=== PATIENT | female | born 1980 | race Caucasian/White ===

== ENCOUNTER 2017-01-17 07:28 | Inpatient (IN) | payer BC ==
[~2017-01-17 07:28] MED LIST: Lactated Ringers 1,000 ML IV SCH; Lidocaine 1%/Sod Bicarbonate in NS 8.4% 1 ML Syringe PRN; Sodium Chloride 0.9% 10 ML Syringe FLUSH PRN
[2017-01-17] MEDS ORDERED: Sodium Chloride 0.9% 50 ML SDV ONE (07:40)
[2017-01-17] MEDS ORDERED: Lidocaine 1% with EPINEPHrine 1:100,000 20 ML MDV ONE (07:40)
--- NOTE | 2017-01-17 08:18 | PCM.PREANE ---
Preanesthetic Assessment - Procedure Proposed Procedure: TVH - Anesthesia/Transfusion/Family Hx Anesthesia History: Prior Anesthesia Without Reaction Family History of Anesthesia Reaction: No Transfusion History: Prior Transfusion Without Reaction Intubation History: Unknown - Review of Systems General: No Symptoms Pulmonary: No Symptoms Cardiovascular: No Symptoms Gastrointestinal: Other (GERD) Neurological: No Symptoms Other: Reports: None, Thyroid Problems (hypothyroidism ), Depression (not medicated ) - Physical Assessment NPO Status Date: 01/16/17 NPO Status Time: 21:00 Pulse: 80 O2 Sat by Pulse Oximetry: 96 Respiratory Rate: 16 Blood Pressure: 116/86 Temperature: 37.0 C Height: 1.75 m Weight: 109.769 kg ASA Class: 2 Mental Status: Alert & Oriented x3 Airway Class: Mallampati = 2 Dentition: Reports: Normal Dentition Thyro-Mental Finger Breadths: 3 Mouth Opening Finger Breadths: 3 ROM/Head Extension: Full Lungs: Clear to Auscultation, Normal Respiratory Effort Cardiovascular: Regular Rate, Regular Rhythm - Allergies Allergies/Adverse Reactions: Allergies Allergy/AdvReac Type Severity Reaction Status Date / Time No Known Allergies Allergy Verified 01/16/17 12:43 - Blood Blood Available: No Product(s) Available: None - Anesthesia Plan Pre-Op Medication Ordered: None - Acknowledgements Anesthesia Type Planned: General Anesthesia Pt an Appropriate Candidate for the Planned Anesthesia: Yes Alternatives and Risks of Anesthesia Discussed w Pt/Guardian: Yes Pt/Guardian Understands and Agrees with Anesthesia Plan: Yes PreAnesthesia Questionnaire HEENT History: Reports: None Cardiovascular History: Reports: None Respiratory History: Reports: None Gastrointestinal History: Reports: None Genitourinary History: Reports: Other (See Below) Other Genitourinary History: menorrhagia PLUG GROWER History: Reports: None Musculoskeletal History: Reports: Other (See Below) Other Musculoskeletal History: radial head/neck fracture with hardware Neurological History: Reports: None Psychiatric History: Reports: Depression Endocrine/Metabolic History: Reports: None Hematologic History: Reports: None Immunologic History: Reports: None Oncologic (Cancer) History: Reports: None Dermatologic History: Reports: None - Past Surgical History HEENT Surgical History: Reports: None Cardiovascular Surgical History: Reports: None Respiratory Surgical History: Reports: None GI Surgical History: Reports: Appendectomy Female Surgical History: Reports: None Male Surgical History: Reports: None Endocrine Surgical History: Reports: None Neurological Surgical History: Reports: None Oncologic Surgical History: Reports: None Dermatological Surgical History: Reports: None - SUBSTANCE USE Smoking Status *Q: Former Smoker Recreational Drug Use History: No - HOME MEDS Home Medications: Home Meds Desogestrel-Ethinyl Estradiol [Apri 28 Day Tablet] 1 tab PO DAILY 01/16/17 [ History] Esomeprazole Magnesium [Nexium] 20 mg PO DAILY 01/16/17 [History] Levothyroxine [Levothyroxine] 75 mcg PO DAILY 01/16/17 [History] Vitamin B Complex [B Complex] 1 tab PO DAILY 01/16/17 [History] buPROPion [Wellbutrin XL] 150 mg PO BID 01/16/17 [History] - CURRENT (IN HOUSE) MEDS Current Meds: Current Medications Lactated Ringer's (Ringers, Lactated) 1,000 mls @ 125 mls/hr IV ASDIRECTED MICHAEL Stop: 01/17/17 23:00 Lidocaine/Sodium Bicarbonate (Buffered Lidocaine 1% In Ns 8.4%) 0.25 ml .XX ONETIME PRN PRN Reason: Prior to IV Start Stop: 01/17/17 18:00 Sodium Chloride (Saline Flush) 10 ml FLUSH ASDIRECTED PRN PRN Reason: Keep Vein Open Stop: 01/17/17 18:00 Discontinued Medications Lidocaine/Epinephrine (Xylocaine 1% With Epinephrine 1:100,000) Confirm Administered Dose 20 ml .ROUTE .STK-MED ONE Stop: 01/17/17 07:41 Sodium Chloride (Normal Saline) Confirm Administered Dose 50 ml .ROUTE .STK-MED ONE Stop: 01/17/17 07:41
[2017-01-17] MEDS ORDERED: Midazolam 1 MG/ML 2 ML SDV ONE (08:40)
[2017-01-17] MEDS ORDERED: Propofol 200 MG/20 ML SDV ONE ×2 (08:40→13:31)
[2017-01-17] MEDS ORDERED: fentaNYL 250 MCG/5 ML SDV ONE (08:40)
[2017-01-17] MEDS ORDERED: Dexamethasone 4 MG/ML 5 ML MDV ONE (08:43)
[2017-01-17] MEDS ORDERED: Rocuronium 50 MG/5 ML Vial ONE (08:43)
[2017-01-17] MEDS ORDERED: Ondansetron 4 MG/2 ML SDV ONE (08:43)
[2017-01-17] MEDS ORDERED: Lidocaine 1% 4 ML ONE (08:43)
[2017-01-17] MEDS ORDERED: ceFAZolin 1 GM Vial ONE (09:20)
[2017-01-17] MEDS ORDERED: Ketorolac 30 MG/ML SDV ONE (09:22)
[2017-01-17] MEDS ORDERED: Ketamine 500 mg/10 ML MDV ONE (09:22)
[2017-01-17] MEDS ORDERED: Neostigmine Methylsulfate 1 MG/ML 5 ML Syringe ONE (09:38)
[2017-01-17] MEDS ORDERED: fentaNYL 100 MCG/2 ML SDV ONE ×2 (10:22→13:40)
[2017-01-17] MEDS ORDERED: HYDROmorphone 1 MG/ML Syringe ONE (10:39)
[2017-01-17] MEDS ORDERED: HYDROmorphone 0.5 MG/0.5 ML Syringe IVPUSH PRN (11:34)
[2017-01-17] MEDS ORDERED: Ondansetron 4 MG/2 ML SDV IVPUSH PRN (11:34)
[2017-01-17] MEDS ORDERED: fentaNYL 100 MCG/2 ML SDV IVPUSH PRN (11:34)
[2017-01-17] MEDS ORDERED: Meperidine PF 50 MG/ML Syringe IVPUSH PRN (11:34)
[2017-01-17] MEDS ORDERED: diphenhydrAMINE 50 MG/ML SDV IVPUSH PRN (11:34)
--- NOTE | 2017-01-17 11:34 | PCM.POSTAN ---
POST ANESTHESIA ASSESSMENT - MENTAL STATUS Mental Status: Alert, Oriented - VITAL SIGNS Pulse Rate: 90 SaO2: 100 Resp Rate: 14 Blood Pressure: 95/41 Temperature: 36.4 C - RESPIRATORY Respiratory Status: Respiratory Rate WNL, Airway Patent, O2 Saturation Stable, Supplemental Oxygen - CARDIOVASCULAR CV Status: Pulse Rate WNL, Blood Pressure Stable - GASTROINTESTINAL GI Status: No Symptoms - PAIN Pain Score: 0 - POST OP HYDRATION Hydration Status: Adequate & Stable
--- NOTE | 2017-01-17 11:42 | PCM.OPNOTE ---
- General Post-Op/Procedure Note Date of Surgery/Procedure: 01/17/17 Operative Procedure(s): Total vaginal hysterectomy Findings: Normal uterus and ovaries. Pre Op Diagnosis: menorrhagia, pelvic pain Post-Op Diagnosis: Same Anesthesia Technique: General ET Tube Primary Surgeon: Monica Bernard Beer Merchant: Eva Garrett Reason Beer Merchant Was Necessary: Standard for vaginal hysterectomy, need for retraction, assistance and sufficient exposure in small spaces. Pathology: uterus Fluid Replacement, Intraop: 2,200 Output, Urine Amount: 300 EBL in mLs: 600 Complications: None Condition: Good Free Text/Narrative:: Procedure: After obtaining appropriate consent she was taken the the operating room where general anesthetic was administered. She was prepped and draped in the usual sterile fashion in high lithotomy using carmelo stirrups. A weighted speculum was placed in the posterior vagina and a maycol utilized anteriorly to visualize the cervix which was grasped with a double toothed tenaculum and placed on traction. A dilute solution of marcaine with epinepherine was then used to inject the mucosa circumferentially. The mucosa was then incised circumferentially with a scalpel. The posterior cul-de-sac was entered sharply with the Beck scissors. The long weighted speculum was placed. The uterosacral ligaments were identified bilaterally, clamped, transected and suture ligated with 0-vicryl. These were tagged for later reference. Attention was turned anteriorly, and sharp dissection was used to mobilize the bladder off the cervix. The anterior cul-de-sac was entered sharply and the maycol retractor advanced. The Ligasure Impact electrosurgical devise was used to clamp, cauterize, and transect the cardinal ligament and uterine vessels bilaterally. This was carried up along the broad ligament to the fundus. A single-toothed tenaculum was then placed on the uterine fundus and it was delivered posteriorly. Each of the utero-ovarian pedicles were then clamped, cauterized, and transected with the Ligasure. The speciman was handed off. Inspection of the pedicles noted an area of bleeding near the left uterine artery. This was suture ligated to obtain hemostasis. The ovaries were visualized bilaterally and noted to be normal. The left uterosacral ligament was identified and grasped with a long allis clamp. 0-ethibond was was placed through the ligament. Peritoneum was picked up with the suture posteriorly, grasping the posterior vaginal wall and continuing across to the right uterosacral ligament. This was tagged for later reference. The procedure was repeated, grasping the uterosacral ligaments more proximally to the first. Again this was tagged. The posterior cuff was run with 0-vicryl in a running fashion. The cuff was closed using 0 vicryl figure of eights in a vertical fashion. The retractors were removed and the marinelli catheter inserted with clear urine noted. She was repositioned supine, draping removed and then taken to PACU in stable condition. Needle, sponge and instrument counts were correct X 3.
[2017-01-17] MEDS: Acetaminophen/oxyCODONE 325-5 MG Tab PO PRN ×2 (16:08→20:21)
[2017-01-17] MEDS ORDERED: Ketorolac 30 MG/ML SDV IVPUSH PRN (18:00)
--- NOTE | 2017-01-17 18:18 | PCM.DCSUM1 ---
Discharge Summary - Hospital Course Brief History: Extended floor recovery after TVH with increased bleeding. Did well. No bleeding since surgery. - Discharge Data Discharge Date: 01/17/17 Discharge Disposition: Home, Self-Care 01 Condition: Good - Patient Summary/Data Operative Procedure(s) Performed: Total vaginal hysterectomy - Patient Instructions Diet: Usual Diet as Tolerated Activity: No Strenuous Activities Driving: Do Not Drive Showering/Bathing: May Shower Notify Provider of: Fever, Increased Pain, Swelling and Redness, Drainage, Nausea and/or Vomiting - Discharge Plan Home Medications: Home Meds Desogestrel-Ethinyl Estradiol [Apri 28 Day Tablet] 1 tab PO DAILY 01/16/17 [ History] Esomeprazole Magnesium [Nexium] 20 mg PO DAILY 01/16/17 [History] Levothyroxine [Levothyroxine] 75 mcg PO DAILY 01/16/17 [History] Vitamin B Complex [B Complex] 1 tab PO DAILY 01/16/17 [History] buPROPion [Wellbutrin XL] 150 mg PO BID 01/16/17 [History] Referrals: Monica Bernard MD [Physician] - (1-2 weeks) - Discharge Summary/Plan Comment DC Time >30 min.: No - General Info Date of Service: 01/17/17 Functional Status: Reports: Pain Controlled - Review of Systems General: Reports: No Symptoms HEENT: Reports: No Symptoms Pulmonary: Reports: No Symptoms Cardiovascular: Reports: No Symptoms Gastrointestinal: Reports: No Symptoms Genitourinary: Reports: No Symptoms Musculoskeletal: Reports: No Symptoms Skin: Reports: No Symptoms Neurological: Reports: No Symptoms Psychiatric: Reports: No Symptoms - Patient Data Vitals - Most Recent: Last Vital Signs Temp 36.3 C 01/17/17 13:00 Pulse 94 01/17/17 16:00 Resp 16 01/17/17 16:00 BP 121/47 L 01/17/17 16:00 Pulse Ox 98 01/17/17 16:00 Weight - Most Recent: 109.769 kg I&O - Last 24 hours: Intake & Output 01/17/17 01/17/17 01/17/17 06:59 14:59 22:59 Intake Total 2650 Output Total 600 100 Balance 2050 -100 Lab Results - Last 24 hrs: Laboratory Results - last 24 hr 01/17/17 01/17/17 01/17/17 Range/Units 07:48 08:10 08:11 WBC 7.98 (3.98-10.04) K/mm3 RBC 4.43 (3.98-5.22) M/mm3 Hgb 13.2 (11.2-15.7) gm/L Hct 37.3 (34.1-44.9) % MCV 84.2 (79.4-94.8) fl MCH 29.8 (25.6-32.2) pg MCHC 35.4 (32.2-35.5) g/dl RDW Std Deviation 37.3 (36.4-46.3) fL Plt Count 291 (182-369) K/mm3 MPV 8.9 L (9.4-12.3) fl Neut % (Auto) 58.3 (34.0-71.1) % Lymph % (Auto) 28.6 (19.3-51.7) % Kleberg % (Auto) 5.6 (4.7-12.5) % Eos % (Auto) 6.5 H (0.7-5.8) Baso % (Auto) 0.6 (0.1-1.2) % Neut # (Auto) 4.65 (1.56-6.13) K/mm3 Lymph # (Auto) 2.28 (1.18-3.74) K/mm3 [place] # (Auto) 0.45 H (0.24-0.36) K/mm3 Eos # (Auto) 0.52 H (0.04-0.36) K/mm3 Baso # (Auto) 0.05 (0.01-0.08) K/mm3 Urine HCG, Qual Negative (NEGATIVE) Blood Type B POSITIVE Gel Antibody Screen Negative Med Orders - Current: Current Medications Docusate Sodium (Colace) 100 mg PO BID MICHAEL Ketorolac Tromethamine (Toradol) 30 mg IVPUSH Q8H PRN PRN Reason: Pain (moderate 4-6) Stop: 01/22/17 18:01 Oxycodone/Acetaminophen (Percocet 325-5 Mg) 2 tab PO Q4H PRN PRN Reason: Pain (moderate 4-6) Last Admin: 01/17/17 16:08 Dose: 2 tab Discontinued Medications Cefazolin Sodium (Ancef) Confirm Administered Dose 2 gm .ROUTE .STK-MED ONE Stop: 01/17/17 09:21 Dexamethasone (Dexamethasone) Confirm Administered Dose 20 mg .ROUTE .STK-MED ONE Stop: 01/17/17 08:44 Diphenhydramine HCl (Benadryl) 25 mg IVPUSH Q6H PRN PRN Reason: Pruritis Stop: 01/17/17 18:00 Fentanyl (Sublimaze) Confirm Administered Dose 250 mcg .ROUTE .STK-MED ONE Stop: 01/17/17 08:41 Fentanyl (Sublimaze) Confirm Administered Dose 100 mcg .ROUTE .STK-MED ONE Stop: 01/17/17 10:23 Fentanyl (Sublimaze) 50 mcg IVPUSH Q5M PRN PRN Reason: Pain Stop: 01/17/17 18:00 Fentanyl (Sublimaze) Confirm Administered Dose 100 mcg .ROUTE .STK-MED ONE Stop: 01/17/17 13:41 Glycopyrrolate () Confirm Administered Dose 1 mg .ROUTE .STK-MED ONE Stop: 01/17/17 09:39 Hydromorphone HCl (Dilaudid) Confirm Administered Dose 1 mg .ROUTE .STK-MED ONE Stop: 01/17/17 10:40 Hydromorphone HCl (Dilaudid) 0.5 mg IVPUSH Q15M PRN PRN Reason: Pain (severe 7-10) Stop: 01/17/17 18:00 Last Admin: 01/17/17 11:50 Dose: 0.5 mg Lactated Ringer's (Ringers, Lactated) 1,000 mls @ 125 mls/hr IV ASDIRECTED MICHAEL Stop: 01/17/17 23:00 Last Admin: 01/17/17 08:08 Dose: 125 mls/hr Lidocaine HCl (Xylocaine-Mpf 1%) Confirm Administered Dose 4 mls @ as directed .ROUTE .STK-MED ONE Stop: 01/17/17 08:44 Ketamine HCl (Ketalar) Confirm Administered Dose 500 mg .ROUTE .STK-MED ONE Stop: 01/17/17 09:23 Ketorolac Tromethamine (Toradol) Confirm Administered Dose 30 mg .ROUTE .STK- MED ONE Stop: 01/17/17 09:23 Lidocaine/Epinephrine (Xylocaine 1% With Epinephrine 1:100,000) Confirm Administered Dose 20 ml .ROUTE .STK-MED ONE Stop: 01/17/17 07:41 Last Admin: 01/17/17 09:12 Dose: 4 ml Lidocaine/Sodium Bicarbonate (Buffered Lidocaine 1% In Ns 8.4%) 0.25 ml .XX ONETIME PRN PRN Reason: Prior to IV Start Stop: 01/17/17 18:00 Last Admin: 01/17/17 08:08 Dose: 0.25 ml Meperidine HCl (Demerol) 12.5 mg IVPUSH ONETIME PRN PRN Reason: Shivering Stop: 01/17/17 18:00 Midazolam HCl (Versed 1 Mg/Ml) Confirm Administered Dose 2 mg .ROUTE .STK-MED ONE Stop: 01/17/17 08:41 Neostigmine Methylsulfate (Neostigmine) Confirm Administered Dose 5 mg .ROUTE .STK-MED ONE Stop: 01/17/17 09:39 Ondansetron HCl (Zofran) Confirm Administered Dose 4 mg .ROUTE .STK-MED ONE Stop: 01/17/17 08:44 Ondansetron HCl (Zofran) 4 mg IVPUSH ONETIME PRN PRN Reason: Nausea/Vomiting Stop: 01/17/17 18:00 Propofol (Diprivan 20 Ml) Confirm Administered Dose 200 mg .ROUTE .STK-MED ONE Stop: 01/17/17 08:41 Propofol (Diprivan 20 Ml) Confirm Administered Dose 200 mg .ROUTE .STK-MED ONE Stop: 01/17/17 13:32 Rocuronium [place] (Zemuron) Confirm Administered Dose 50 mg .ROUTE .STK-MED ONE Stop: 01/17/17 08:44 Sodium Chloride (Saline Flush) 10 ml FLUSH ASDIRECTED PRN PRN Reason: Keep Vein Open Stop: 01/17/17 18:00 Sodium Chloride (Normal Saline) Confirm Administered Dose 50 ml .ROUTE .STK-MED ONE Stop: 01/17/17 07:41 Last Admin: 01/17/17 09:12 Dose: 11 ml - Exam General: Reports: Alert, Oriented HEENT: Reports: Pupils Equal, Pupils Reactive, EOMI, Mucous Membr. Moist/[place] Neck: Reports: Supple Lungs: Reports: Clear to Auscultation, Normal Respiratory Effort Cardiovascular: Reports: Regular Rate, Regular Rhythm GI/Abdominal Exam: Normal Bowel Sounds, Soft, Non-Tender, No Organomegaly, No Distention, No Abnormal Bruit, No Mass, Pelvis Stable Back Exam: Reports: Normal Inspection, Full Range of Motion Extremities: Normal Inspection, Normal Range of Motion, Non-Tender, No Pedal Edema, Normal Capillary Refill Skin: Reports: Warm, Dry, Intact Wound/Incisions: Reports: Healing Well Neurological: Reports: No New Focal Deficit Psy/Mental Status: Reports: Alert, Normal Affect, Normal Mood *Q Meaningful Use (DIS) - VTE *Q VTE Criteria *Q: - Stroke *Q Stroke Criteria *Q: - AMI *Q AMI Criteria *Q:
[2017-01-17] MEDS ORDERED: Ibuprofen 800 MG Tab PO ONE (18:42)
[2017-01-17] MEDS ORDERED: Docusate Sodium 100 MG Cap PO SCH (21:00)
== END 2017-01-17 20:28 | disposition home or self-care (01) | DRG 513 ==
LOC: JD.SDS 07:28 → JD.OB 11:27
PROVIDERS: ADMIT Obstetrics & Gynecology; ATTEND Obstetrics & Gynecology
PROC: 0UT97ZZ Resection of Uterus, Via Natural or Artificial Opening (ICD-10-PCS; principal; 2017-01-17)
PROC: 0UTC7ZZ Resection of Cervix, Via Natural or Artificial Opening (ICD-10-PCS; 2017-01-17)
DX: N92.0 Excessive and frequent menstruation with regular cycle (principal); R10.2 Pelvic and perineal pain; F32.9 Major depressive disorder, single episode, unspecified; Z79.899 Other long term (current) drug therapy
CPT/HCPCS: 00944; 36415; 81025; 85025; 85027; 86850; 86900; 86901; A9270-GY; J0690; J1100; J1170; J1885; J2250; J2405; J2704; J2710; J3010; J7120